=== PATIENT | male | born 1945 | race Caucasian/White ===

== ENCOUNTER 2018-10-07 13:19 | Emergency (ER) | payer MEDICARE, OTHER ==
[~2018-10-07] VITALS: Ht 175.3 cm; Wt 89.8 kg
[~2018-10-07 13:19] MED LIST: ADULT LOW DOSE81 MG PO; ATENOLOL50 MG PO; IBUPROFEN600 MG PO; LIPITOR40 MG PO; PAXIL20 MG PO; PERCOCET 5-3251 EACH PO
[2018-10-07] MEDS ORDERED: ULTRAM50 MG PO (13:42)
[2018-10-07] MEDS ORDERED: POTASSIUM CHLO10 ME2 PO (13:43)
[2018-10-07] MEDS ORDERED: CHLORTHALIDONE25 MG PO (13:43)
--- NOTE | 2018-10-08 16:59 | EKG ---
[facility] [address] [facility] [place], [place] [address] Signed Sinus bradycardia Otherwise normal ECG When compared with ECG of 29-OCT-2016 10:05, No significant change was found Confirmed by LENA LIMA DO ([id number]) on 10/08/2018 4:59:19 PM Electronically Signed By: LENA LIMA DO 10/08/18 1659 PATIENT NAME: JUAN PABLO SKY Electrocardiogram DATE OF : 47 PHYSICIAN: LENA LIMA DO REPORT #: [id number] REPORT IS CONFIDENTIAL AND NOT TO BE RELEASED WITHOUT AUTHORIZATION
== END 2018-10-07 17:15 | disposition home or self-care (01) ==
LOC: ED 13:19
DX: G45.9 Transient cerebral ischemic attack, unspecified (principal); I10 Essential (primary) hypertension; E78.00 Pure hypercholesterolemia, unspecified; Z90.89 Acquired absence of other organs; Z88.5 Allergy status to narcotic agent; Z79.899 Other long term (current) drug therapy; Z79.82 Long term (current) use of aspirin
CPT/HCPCS: 70450; 70496; 70498; 70551; 80053; 85025; 85610; 93005; 93010; 99284-25; Q9967

== ENCOUNTER 2020-11-28 10:26 | Emergency (ER) | payer MEDICARE, OTHER ==
[~2020-11-28] VITALS: Ht 175.3 cm; Wt 89.4 kg
[~2020-11-28 10:26] MED LIST changes: +CHLORTHALIDONE25 MG PO; +POTASSIUM CHLO10 ME2 PO; +ULTRAM50 MG PO
== END 2020-11-28 12:15 | disposition home or self-care (01) ==
LOC: ED 10:26
DX: M79.652 Pain in left thigh (principal); I10 Essential (primary) hypertension; E78.00 Pure hypercholesterolemia, unspecified; Z88.5 Allergy status to narcotic agent; Z79.899 Other long term (current) drug therapy
CPT/HCPCS: 80048; 83735; 85025; 85379; 99283

== ENCOUNTER 2021-07-30 06:04 | Day surgery (SDC) | payer MEDICARE, OTHER ==
[~2021-07-30] VITALS: Ht 175.3 cm; Wt 95.0 kg
[~2021-07-30 06:04] MED LIST changes: +CLOPIDOGREL75 MG PO
--- NOTE | 2021-07-30 08:48 | NUR ---
07/30/21 0848 Gabriela Miranda 3043-PATIENT ARRIVED TO PACU ON 6L MASK RR EVEN PATIENT REACTIVE TO VERBAL STIMULI OPENING EYES AND FOLLOWING COMMANDS. DENIES PAIN OR NAUSEA. 3 LAP SITES TO ABDOMEN SMALL AMT OF DRAINAGE. SR. IVF INFUSING. PATIENT DOZES BACK TO SLEEP.
[2021-07-30] MEDS ORDERED: IBUPROFEN600 MG PO (09:07)
[2021-07-30] MEDS ORDERED: ACETAMINOPHEN500 MG PO (09:08)
[2021-07-30] MEDS ORDERED: OXYCODON-ACETA1 EAC2 PO (09:08)
--- NOTE | 2021-07-30 10:42 | NUR ---
0935 PT BACK TO ROOM FROM PACU AWAKE AND ALERT COMPLAINS OF PAIN 4-5/10 REQUESTING PAIN MED. SURGICAL SITE BLEEDING THROUGH STERI STRIPS USED GAUZE AND TAPE TO REINFORCE. AT BEDSIDE. PT EATING APPLE SAUCE AND CRACKERS TOLERATES WELL. 1000 PERCOCET GIVEN FOR PAIN. 1030 PT REPORTS PAIN IS MUCH BETTER 3/10, BACK IN ROOM. PT DRINKING COFFEE. TOLERATES WELL.
--- NOTE | 2021-07-30 11:15 | NUR ---
0935: PT ARRIVES TO UNIT FROM PACU VIA STRETCHER. AWAKE AND ALERT ON ARRIVAL. VSS, RESP EVEN AND UNLABORED ON 2L VIA NC. O2 SAT >98% AND STABLE. DENIES NAUSEA BUT REPORTS MILD PAIN. DISCUSSED PAIN MANAGEMENT, TO EAT PRIOR TO RX ADMINISTRATION. LAP SITES X3 WITH MOD RED DRAINAGE. ICE WATER AND PUDDING PROVIDED. SCDS IN PLACE. POC DISCUSSED AND PT AGREEABLE. NO NEEDS VOICED. ATTENTIVE AT THE BEDSIDE. CALL LIGHT WITHIN REACH
--- NOTE | 2021-07-30 13:17 | NUR ---
1215 PT WALKED TO THE BATHROOM WITH MINIMAL ASSIST HE WAS ABLE TO VOID A GOOD AMOUNT OF CLEAR YELLOW URINE. HE REPORTS READINESS TO GO HOME. PT STATES PAIN IS MUCH BETTER 2-3/10. GAUZE AND TAPE CHANGED OVER INCISION ON UMBILICUS. GAUZE AND TAPE REMAINED DRY OVER INCISION ON RT SIDE OF ABD. PT GIVEN AND GIVEN DISCHARGE INSTRUCTIONS. BOTH VOICED UNDERSTANDING.
--- NOTE | 2021-07-30 13:34 | NUR ---
1228: PT WHEELED OFF OF UNIT BY THIS RN IN FOR DC. TRANSFERS INTO VEHICLE INDEPENDENTLY AND APPROPRIATELY. NO PHYSICAL S/S OF DISTRESS AT THIS TIME
--- NOTE | 2021-07-30 13:44 | NUR ---
PT ALERT, ORIENTED AND SUPPORTED BY HIS MAXIMILIAN. PT SEEMS INFORMED, ALL QUESTIONS ASKED ANSWERED. PT REQUESTED PRAYER, WILL FOLLOW NEEDED
--- NOTE | 2021-07-31 13:37 | OR ---
[facility] [address] [place], [place] [address] Signed DATE OF OPERATION: 07/30/2021 SURGEON: Shade Lyons MD PREOPERATIVE DIAGNOSIS: Tail of pancreas neoplasm and possible omental nodules. POSTOPERATIVE DIAGNOSES: 1. Tail of pancreas neoplasm and possible omental nodules. 2. Diffuse carcinomatosis and omental caking. PROCEDURES: 1. Laparoscopy. 2. Laparoscopic partial omentectomy. 3. Peritoneal biopsies (multiple). ANESTHESIA: General endotracheal, Renaldo Silva, MANAGER CHEMICAL and local 10 mL of 0.25% Marcaine with epinephrine. INDICATION: This 75-year-old white man is a patient of Dr. Lizbet Pierre. He lives in [place]. Formally, he lived in [place]. The patient has had complaints of upper bandlike pain bilaterally and a CT scan was performed by Dr. Pierre, which confirmed a neoplasm in the tail of the pancreas involving the hilum of the spleen and possible splenic lesions as well. Additionally, there were suspicious lymph nodes of the aortocaval junction and nodularity within the omentum. A CA19-9 tumor marker was obtained, which was quite markedly elevated greater than 2705 (normal less than 70). Concurrent CEA level was normal. The patient is admitted at this time to undergo a laparoscopy to better characterize the problem including possible omentectomy, peritoneal biopsies, and other indicated procedures as necessary. The patient and his understand the risks of bleeding, infection, anesthetic complications, and so forth and wished to proceed. FINDINGS: Diffuse carcinomatosis of the peritoneum was noted. Additionally, extensive involvement of the omentum was noted. No doubt this represents metastatic pancreatic cancer and is considered incurable. He had no sign of dilated small bowel loops or anything to suggest imminent obstruction. The pancreatic neoplasm and hilum of the spleen were not Electronically Signed By: SHADE LYONS MD 07/31/21 1337 PATIENT NAME: JUAN PALBO SKY OPERATIVE REPORT DATE OF : 47 REPORT #: [id number] PHYSICIAN: SHADE LYONS MD PCP: LIZBET PIERRE MD REPORT IS CONFIDENTIAL AND NOT TO BE RELEASED WITHOUT AUTHORIZATION [facility] [address] [place], [place] [address] Signed visualized. The liver had no gross evidence of metastatic disease. DESCRIPTION OF PROCEDURE: The patient was brought to the operating room, given a general endotracheal anesthetic. Preoperative antibiotic Ancef was given. Sequential compression device stockings were used and heparin subcutaneously administered. The abdomen was clipped and prepared with a chlorhexidine solution and draped sterilely. An infraumbilical incision was made and using an open Iker cannula technique, pneumoperitoneum was achieved to a level of 14 mmHg of carbon dioxide gas. Immediately noted were innumerable pearly nodules over the peritoneal area superiorly and elsewhere with special confluence in the right hemidiaphragm. A 12 mm epigastric port was placed as was a right lower quadrant 5 mm port. Two-hand manipulation revealed the omentum to be involved with neoplastic change as well. Omental caking was noted. There was a small amount of ascites lateral to the liver, not too much. There was no sign of dilated bowel loops to suggest obstruction or need for palliative decompression at this time. A segment of omentum was elevated and found to have rather typical omental caking. With an Endo LAURO stapling device, three loads were used to transect a generous piece of omentum (partial omentectomy), which was then placed in an endobag and extracted through the infraumbilical port site, passed for permanent pathology. Using an Endo cup biopsy device, multiple peritoneal biopsies were obtained as well. Good hemostasis was noted. Irrigation was undertaken. Excess irrigation fluid suctioned free. The trocars removed under direct visualization showing no sign of bleeding. The infraumbilical fascial incision was reapproximated with interrupted 0 Vicryl suture as was the epigastric port site. The skin was closed with interrupted 3-0 Vicryl. 10 mL of 0.25% Marcaine with epinephrine injected locally. The patient was ultimately extubated and transferred to recovery room in good condition having suffered no complications. Blood loss wasminimal. Sponge, needle, and instrument counts were reported as correct x3. Shade Lyons MD /MODL /[id number] Electronically Signed By: SHADE LYONS MD 07/31/21 1337 PATIENT NAME: JUAN PABLO SKY OPERATIVE REPORT DATE OF : 47 REPORT #: [id number] PHYSICIAN: SHADE LYONS MD PCP: LIZBET PIERRE MD REPORT IS CONFIDENTIAL AND NOT TO BE RELEASED WITHOUT AUTHORIZATION [address] [address] Signed cc: Lizbet Pierre MD Copies: LIZBET PIERRE MD ~ Electronically Signed By: SHADE LYONS MD 07/31/21 1337 PATIENT NAME: JUAN PABLO SKY OPERATIVE REPORT DATE OF : 47 REPORT #: [id number] PHYSICIAN: SHADE LYONS MD PCP: LIZBET PIERRE MD REPORT IS CONFIDENTIAL AND NOT TO BE RELEASED WITHOUT AUTHORIZATION
--- NOTE | 2021-08-02 17:42 | PATH ---
[facility] [address] [facility] [place] [address] Signed SPECIMEN(S): A PORTION OF OMENTUM SPECIMEN(S): B PERITONEAL BIOPSIES SPECIMEN SOURCE: A. PORTION OF OMENTUM B. PERITONEAL BIOPSIES CLINICAL HISTORY: Band-like bilateral upper subcostal pain. Laparoscopy with omental excision, peritoneal biopsies. FINAL PATHOLOGIC DIAGNOSIS: A. Portion of omentum: - Portion of omental adipose tissue infiltrated by moderately differentiated adenocarcinoma. Results of immunohistochemical stains reveal the following: - POSITIVE: CK7, CA19-9. - NEGATIVE: CDx2, RCC, Villin, CK20, TTF1, Napsin A, GATA3. - EQUIVOCAL: CD10. B. Peritoneum, biopsies: - Fibroconnective and adipose tissue infiltrated by tumor demonstrating similar morphologic features as seen in specimen A. - See specimen A for immunohistochemical workup. COMMENT: The findings indicate a carcinoma of probable upper gastrointestinal origin, to include gallbladder, stomach or pancreas. Please correlate these findings with the clinical presentation. Control slides stain appropriately positive. TWK:NRT:cml:C1NR MICROSCOPIC EXAMINATION: Histologic sections of all submitted blocks are examined by light microscopy. These findings, together with the gross examination, support the pathologic diagnosis. GROSS DESCRIPTION: Two specimens are received in two containers, labeled "GG." A. The specimen, labeled "GG, A," and designated on the requisition "portion of omentum," is received in formalin and consists of portion of yellow-levin, fatty to firm omentum (8.8 x 4.0 x 1.7 cm) PATIENT NAME: JUAN PABLO SKY PATHOLOGY DATE OF : 47 REPORT #: [id number] PHYSICIAN: GREER GALEANA PCP: LIZBET PIERRE MD REPORT IS CONFIDENTIAL AND NOT TO BE RELEASED WITHOUT AUTHORIZATION [facility] [address] [place], [place] [address] Signed with stapled margin. The specimen is inked blue, the staple line is removed and the margin is inked black. The specimen is serially sectioned to reveal yellow-levin, soft to white-levin, indurated cut surfaces, with white-levin indurated areas present at the staple line. A discrete mass is not identified. French Comber sections are submitted in cassettes (A1-A3). B. The specimen, labeled "GG, B," and designated on the requisition "peritoneal biopsies," is received in formalin and consists of multiple fragments of white to yellow-levin soft tissue (1.5 x 1.0 x 0.3 cm in aggregate). The specimen is submitted entirely in cassette (B1). AC (under the direct supervision of a pathologist) The Gross Description was prepared using a voice recognition system. The report was reviewed for accuracy; however, sound-alike word errors, addition and/or deletions may occur. If there is any question about this report, please contact Client Services. ADDITIONAL NOTES: Immunohistochemical and/or in situ hybridization studies were performed on this case with the appropriate positive controls that react as expected. This test was developed and its performance characteristics determined by [employer]. It has not been cleared or approved by the U.S. Food and Drug Administration. The FDA has determined that such clearance or approval is not necessary. This test is used for clinical purposes. It should not be regarded as investigational or for research. [employer] is certified under the Clinical Laboratory Improvement Amendments of 1988 (CLIA) as qualified to perform high complexity clinical laboratory testing. This assay has not been validated for specimens that have been decalcified. The technical component was performed by [employer], [address] [place] [address] (Winding Inspector And Tester: Laverne Pereira MD; CLIA# [id number]). The technical component was performed by [employer], [address] [place], [place] [address], [place] [address] (Winding Inspector And Tester: Eddie Jones D.O.; CLIA#: [id number]). [facility], [address] [facility] [place] [address] (CLIA# [id number]). The technical component was performed by [employer], [address] [place] [address] (Winding Inspector And Tester: Laverne Pereira MD; CLIA# [id number]). [facility], [address] [facility]. 107, PATIENT NAME: JUAN PABLO SKY PATHOLOGY DATE OF : 47 REPORT #: [id number] PHYSICIAN: GREER PATHOLOGY PCP: LIZBET PIERRE MD REPORT IS CONFIDENTIAL AND NOT TO BE RELEASED WITHOUT AUTHORIZATION [facility] [address] [place], [place] [address] Signed [place] [address] (CLIA# [id number]). Diagnostician: Chris Villalobos MD Pathologist Electronically Signed 08/02/2021 Copies: ~ PATIENT NAME: JUAN PABLO SKY PATHOLOGY DATE OF : 47 REPORT #: [id number] PHYSICIAN: GREER PATHOLOGY PCP: LIZBET PIERRE MD REPORT IS CONFIDENTIAL AND NOT TO BE RELEASED WITHOUT AUTHORIZATION
== END 2021-07-30 12:31 | disposition home or self-care (01) ==
LOC: DS 06:04
PROVIDERS: ATTEND Surgery
PROC: 0WBH4ZX Excision of Retroperitoneum, Percutaneous Endoscopic Approach, Diagnostic (ICD-10-PCS; 2021-07-30)
PROC: 0DBU4ZZ Excision of Omentum, Percutaneous Endoscopic Approach (ICD-10-PCS; principal; 2021-07-30 06:45)
DX: C25.2 Malignant neoplasm of tail of pancreas (principal); C78.6 Secondary malignant neoplasm of retroperitoneum and peritoneum; C80.0 Disseminated malignant neoplasm, unspecified; I10 Essential (primary) hypertension
CPT/HCPCS: 00790; J0131; J0690; J1100; J1644; J2001; J2405; J2704; J3010; J7121

== ENCOUNTER 2021-11-12 11:06 | Day surgery (SDC) | payer MEDICARE, OTHER ==
[~2021-11-12] VITALS: Ht 175.3 cm; Wt 86.5 kg
[~2021-11-12 11:06] MED LIST changes: +ACETAMINOPHEN500 MG PO; +LIPITOR10 MG; +LOMOTIL TABLET1 EACH PO; +LOVENOX80 MG/0.8 SUB-Q; +ONDANSETRON ODT8 MG PO; +OXYCODON-ACETA1 EAC2 PO; +TRAMADOL HCL50 MG PO
[2021-11-12] MEDS ORDERED: XARELTO20 MG PO (12:08)
[2021-11-12] MEDS ORDERED: FENTANYL1 EACH TD (12:15)
--- NOTE | 2021-11-12 13:57 | NUR ---
11/12/21 1357 Margot Chamorro 1340- PT TO PACU IN SF POSITION. EYES OPEN. DROWSY. PT RESPONDS TO COMMANDS. BREATHING EASY AND UNLABORED. SPO2 >95% ON 6 L O2 VIA SIMPLE MASK. 1346- PT REMAINS AWAKE DENIES PAIN AND NAUSEA. BREATHING EASY AND UNLABORED. SPO2 >95%. O2 TITRATED DOWN TO ROOM AIR. 1352- PT REQUESTING ICE CHIPS. HOB ELEVATED. PT DENIES DIZZINESS OR NAUSEA. SP02 88-90% WHILE SLEEPING. 2 L O2 VIA NC APPLIED.
[2021-11-12] MEDS ORDERED: ACETAMINOPHEN500 MG PO (13:58)
--- NOTE | 2021-11-12 15:18 | NUR ---
1505: PATIENT BACK IN DAY SURGERY ROOM FROM PACU FOR DECREASED O2 SATS. PATIENT ON ROOM AIR. ENCOURAGED TO TAKE DEEP BREATHS. FAMILY ENCOURAGED TO REMIND PATIENT. VS CHECKED. DENIES PAIN. LEFT CHEST DRESSING CDI. SCDs ON. CALL LIGHT WITHIN REACH. FAMILY AT BEDSIDE.
--- NOTE | 2021-11-12 15:59 | NUR ---
1530: O2 SATS DROPPING TO MID 80s. PATIENT PLACED ON 1 L O2 VIA NC. FAMILY AT BEDSIDE. CALL LIGHT WITHIN REACH.
--- NOTE | 2021-11-12 16:17 | NUR ---
1550: VS CHECKED. O2 TURNED OFF. PATIENT BACK ON ROOM AIR. LEFT CHEST DRESSING CDI. FAMILY AT BEDSIDE. CALL LIGHT WITHIN REACH. 1605: O2 SATs IN LOW 90s. PATIENT ASSISTED TO GET OOB AND DRESSED BY . O2 SAT AFTER DRESSING IN MID 90s. 1610: IV DC'D WNL. TIP INTACT. DRESSING APPLIED. PATIENT DISCHARGED TO HOME WITH VIA WHEELCHAIR. DISCHARGE INSTRUCTIONS GIVEN TO PREVIOUSLY BY COVER MACHINE OPERATOR.
--- NOTE | 2021-11-12 19:02 | OR ---
[facility] [address] [place], [place] [address] Signed DATE OF OPERATION: 11/12/2021 SURGEON: Shade Lyons MD PREOPERATIVE DIAGNOSES: 1. Stage IV pancreatic carcinoma with ongoing palliative care. 2. Flipped and mobile left subclavian Port-A-Cath device (Bard port catheter). POSTOPERATIVE DIAGNOSES: 1. Stage IV pancreatic carcinoma with ongoing palliative care. 2. Flipped and mobile left subclavian Port-A-Cath device (Bard port catheter). PROCEDURE: Left subclavian Port-A-Cath revision. ANESTHESIA: Local with monitored anesthesia care, Renaldo Silva CRNA INDICATIONS: This 76-year-old white man is a patient of Dr. Lizbet Pierre and found to have stage IV pancreatic cancer based on CT scan findings and laparoscopic biopsies. He has generalized carcinomatosis. The patient underwent placement of a left subclavian Bard port catheter (Port-A-Cath device) on September 03, 2021. He promptly thereafter embarked on chemotherapy and has had a fair amount of weight loss and so on. He is tolerating the palliative regimen well overall. He was recently found to have clinical appearance of a "flipped" Port-A-Cath device. Protocol for [facility] where he was undergoing chemotherapy forbids the manipulation by Oncology staff to allow for infusion of the port and on that basis he returns here for revision of the Port-A-Cath. The patient understands as does his the risk of bleeding, infection, and so forth and wished to proceed. Notably, the patient did have a postoperative DVT/pulmonary embolism and has been on Xarelto since that time. He was planning to be off his Xarelto, but in fact accidentally had taken it yesterday, though not today. We will proceed any way as a local anesthetic and sedation is all that will be necessary for revision of this Port-A-Cath. His and he understand the risk of bleeding, infection, need for replacement of the port altogether and of course the recurrent problems and has agreed to proceed. Electronically Signed By: SHADE LYONS MD 11/12/21 1902 PATIENT NAME: JUAN PABLO SKY OPERATIVE REPORT DATE OF : 47 REPORT #: [id number] PHYSICIAN: SHADE LYONS MD PCP: LIZBET PIERRE MD REPORT IS CONFIDENTIAL AND NOT TO BE RELEASED WITHOUT AUTHORIZATION [facility] [address] [place], [place] [address] Signed FINDINGS: In the day surgery area, I was easily able to flip the port to the upright position. Nevertheless, we proceeded to the operating room where a well-formed capsule was noted. The port itself appeared to be nonproblematic. It was easily sutured in place with 0 Prolene to the base of the well-formed capsule and it is unlikely to having further problems. It was tested with a Barajas needle showing easy withdrawal of blood and easy flushing with heparinized saline. DESCRIPTION OF PROCEDURE: The patient was brought to the operating room, given intravenous sedation. His arms were at the side. The upper torso was prepared with a chlorhexidine solution and draped sterilely. He received preoperative antibiotic Ancef. Sequential compression device stockings were then placed as well. A 0.25% Marcaine with epinephrine injected along the previous incision line in the left infraclavicular space. Using a 15 blade, dissection was carried through the subcutaneous tissue until encountering the port device itself. Electrocautery was used to incise the capsule. The port was normal in appearance and at this point in appropriate position as I was able to flip it into a normal position in the day surgery area. The capsule was well formed. There was no sign of infection. The port was secured to the deep capsular rind circumferentially around the port with interrupted 2-0 Prolene suture. The port was very well fixed at this point. Using a Barajas needle, aspiration of blood was easily noted and flushing with heparinized saline without problem noted as well. The port capsule was reapproximated with interrupted 2-0 Vicryl. The skin was closed with running subcuticular 3-0 Vicryl. Steri-Strips were applied as was an Acticoat dressing. The patient tolerated the procedure well. BLOOD LOSS: Minimal. Shade Lyons MD /MODL /[id number] cc: Lizbet Pierre MD Electronically Signed By: SHADE LYONS MD 11/12/211901 PATIENT NAME: JUAN PABLO SKY OPERATIVE REPORT DATE OF : 47 REPORT #: [id number] PHYSICIAN: SHADE LYONS MD PCP: LIZBET PIERRE MD REPORT IS CONFIDENTIAL AND NOT TO BE RELEASED WITHOUT AUTHORIZATION [address] [address] Signed Copies: LIZBET PIERRE MD ~ Electronically Signed By: SHADE LYONS MD 11/12/21 1902 PATIENT NAME: JUAN PABLO SKY OPERATIVE REPORT DATE OF : 47 REPORT #: [id number] PHYSICIAN: SHADE LYONS MD PCP: LIZBET PIERRE MD REPORT IS CONFIDENTIAL AND NOT TO BE RELEASED WITHOUT AUTHORIZATION
== END 2021-11-12 16:10 | disposition home or self-care (01) ==
LOC: DS 11:06
PROVIDERS: ATTEND Surgery
PROC: 02WY33Z Revision of Infusion Device in Great Vessel, Percutaneous Approach (ICD-10-PCS; principal; 2021-11-12 12:00)
DX: T82.524A Displacement of infusion catheter, initial encounter (principal); C25.9 Malignant neoplasm of pancreas, unspecified; I10 Essential (primary) hypertension; Z90.49 Acquired absence of other specified parts of digestive tract; Z88.5 Allergy status to narcotic agent; Z20.822 Contact with and (suspected) exposure to COVID-19
CPT/HCPCS: C9803; J0690; J1644; J2001; J2405; J2704; J3010; J7121; U0003

== ENCOUNTER 2022-08-03 02:05 | Emergency (ER) | payer MEDICARE, OTHER ==
[~2022-08-03] VITALS: Ht 175.3 cm; Wt 65.3 kg
[~2022-08-03 02:05] MED LIST changes: +CEFDINIR300 MG PO; +CONSTULOSE10 GM/15 M PO; +FENTANYL1 EACH TD; +LORAZEPAM1 MG PO; +MUPIROCIN22 GM TOP; +PAROXETINE ER25 MG PO; +PROCHLORPERAZIN10 MG PO; +XARELTO20 MG PO
--- OUTSIDE RECORDS SUMMARY | 2022-08-03 02:06 | XMS ---
PreManage Notification: JUAN PABLO SKY Security Medical Office Specialist Events No recent Security Events currently on file CRITERIA MET - [facility] CARE PROVIDERS There are no care providers on record at this time. [facility] has no Care Guidelines for this patient. Evgeny VISIT COUNT (12 MO.) 10 Panther [place] Ameena 2 PAZ Henson TOTAL 12 NOTE: Visits indicate total known visits. ED/C VISIT TRACKING (12 MO.) 08/03/2022 02:05 [facility] [place] TYPE: Emergency COMPLAINT: - FALL 06/12/2022 17:04 [facility] [place] TYPE: Emergency COMPLAINT: - WEAKNESS [facility] DIAGNOSES: - Fever presenting with conditions classified elsewhere - chemo patient disoriented - Acute embolism and thrombosis of unspecified deep veins of left distal lower extremity - Malignant neoplasm of pancreas, unspecified - Altered Mental Status - Pneumonia, unspecified organism - Neutropenia, unspecified - Metabolic encephalopathy 02/17[facility]2022 [facility] DIAGNOSES: - Abdominal Pain - Left upper quadrant pain - abd pain 01/28/2022 21[facility] DIAGNOSES: - Pneumonitis due to inhalation of food and vomit - Fever (9 Weeks To 74 Years) - Sepsis, unspecified organism - post chemo high temp - Pneumonia, unspecified organism 01/04/2022 13[facility] DIAGNOSES: - Other chest pain - Chest Pain 12/05/2021 09[facility] DIAGNOSES: - Epistaxis - Epistaxis - Thrombocytopenia, unspecified - persisting nose bleed, chemo patient, Oncologist is DR Hansen - Anemia, unspecified - Malignant (primary) neoplasm, unspecified 11/30/2021 12[facility] DIAGNOSES: - Altered Mental Status - Altered mental status, unspecified [facility]/08[facility] [place] [facility]: Emergency DIAGNOSES: - SOB - Shortness of breath - Other specified postprocedural states 10/27/2021 11:[facility] [place] [facility] Emergency DIAGNOSES: - sob, low o2 - Chronic pulmonary embolism - Secondary malignant neoplasm of retroperitoneum and peritoneum - Shortness of Breath - Pleural effusion, not elsewhere classified - Anemia in other chronic diseases classified elsewhere 10/08/2021 [facility] [place] TYPE: Emergency DIAGNOSES: - cancer patient altered mental status - Hallucinations, unspecified - Altered Mental Status 08/10/2021 11[facility]30 [facility] [place] [facility]: Emergency DIAGNOSES: - SOB - Other pulmonary embolism with acute cor pulmonale - Acute embolism and thrombosis of unspecified deep veins of left distal lower extremity - Neoplasm of uncertain behavior of other specified digestive organs - Shortness of Breath INPATIENT VISIT TRACKING (12 MO.) 06/12/2022 17:05 [facility] TYPE: Observation COMPLAINT: - LACTIC ACIDOSIS, ALTERED MENTAL STATUS DIAGNOSES: - Acidosis, unspecified - adjunct faculty for medical terminology (current) use of anticoagulants - Other pancytopenia - Nausea with vomiting, unspecified - Sepsis, unspecified organism - Malignant neoplasm of pancreas, unspecified - ACIDOSIS, UNSPECIFIED - Hyperglycemia, unspecified - Personal history of other venous thrombosis and embolism - Essential (primary) hypertension - Allergy status to narcotic agent - Contact with and (suspected) exposure to COVID-19 - Altered mental status, unspecified 04/26[facility]2022 [facility] DIAGNOSES: - Acute embolism and thrombosis of unspecified deep veins of left distal lower extremity - Fever presenting with conditions classified elsewhere - Neutropenia, unspecified - Malignant neoplasm of pancreas, unspecified - Metabolic encephalopathy - Pneumonia, unspecified organism 01/28/2022 21[facility]12 [facility] [place] [facility]: Medical [facility] DIAGNOSES: - Unspecified severe protein-calorie malnutrition - Sepsis, unspecified organism - Pneumonia, unspecified organism - Malignant neoplasm of pancreas, unspecified - Pneumonitis due to inhalation of food and vomit 08/10/2021 11:30 [facility] TYPE: Surgical Services DIAGNOSES: - Essential (primary) hypertension - Other pulmonary embolism with acute cor pulmonale - Acute embolism and thrombosis of unspecified deep veins of left distal lower extremity - Other pulmonary embolism without acute cor pulmonale - Transient cerebral ischemic attack, unspecified - Multiple subsegmental pulmonary emboli without acute cor pulmonale - Neoplasm of uncertain behavior of other specified digestive organs - Malignant neoplasm of pancreas, unspecified - Hyperlipidemia, unspecified - Mixed hyperlipidemia - Personal history of transient ischemic attack (TIA), and cerebral infarction without residual deficits [email or web address]
[2022-08-03] MEDS ORDERED: POTASSIUM CHLO20 ME2 PO (02:18)
[2022-08-03] MEDS ORDERED: PANTOPRAZOLE SO40 MG PO (02:18)
[2022-08-03] MEDS ORDERED: PERCOCET 5-3251 EACH PO (03:05)
== END 2022-08-03 03:24 | disposition home or self-care (01) ==
LOC: ED 02:05
DX: S29.012A Strain of muscle and tendon of back wall of thorax, initial encounter (principal); T14.8XXA Other injury of unspecified body region, initial encounter; I10 Essential (primary) hypertension; E78.00 Pure hypercholesterolemia, unspecified; Z86.718 Personal history of other venous thrombosis and embolism; Z88.5 Allergy status to narcotic agent; Z79.899 Other long term (current) drug therapy; Z79.01 Long term (current) use of anticoagulants; W01.0XXA Fall on same level from slipping, tripping and stumbling without subsequent striking against object, initial encounter
CPT/HCPCS: 72070; 72080; 99283-25

== ENCOUNTER 2022-08-05 00:03 | Emergency (ER) | payer MEDICARE, OTHER ==
[~2022-08-05] VITALS: Ht 175.3 cm; Wt 65.3 kg
[~2022-08-05 00:03] MED LIST changes: +PANTOPRAZOLE SO40 MG PO; +POTASSIUM CHLO20 ME2 PO
--- OUTSIDE RECORDS SUMMARY | 2022-08-05 00:06 | XMS ---
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 [facility] has no Care Guidelines for this patient. Evgeny VISIT COUNT (12 MO.) [address] [facility] T[facility] NOTE: Visits indicate total known visits. ED/C VISIT TRACKING (12 MO.) 08/05/2022 00:04 [facility] [place] TYPE: Emergency COMPLAINT: - VOMITING BLOOD AND FELL IN SHOWER 08/03/2022 02:05 [facility] [place] TYPE: Emergency COMPLAINT: - FALL 06/12/2022 17:04 [facility] [place] TYPE: Emergency COMPLAINT: - WEAKNESS 04/26[facility]2022 09:29 [facility] DIAGNOSES: - Fever presenting with conditions classified elsewhere - chemo patient disoriented - Acute embolism and thrombosis of unspecified deep veins of left distal lower extremity - Malignant neoplasm of pancreas, unspecified - Altered Mental Status - Pneumonia, unspecified organism - Neutropenia, unspecified - Metabolic encephalopathy [facility] DIAGNOSES: - Abdominal Pain - Left upper quadrant pain - abd pain 01/28/2022 21:12 [facility] Serafin [place] TYPE: Emergency DIAGNOSES: - Pneumonitis due to inhalation of food and vomit - Fever (9 Weeks To 74 Years) - Sepsis, unspecified organism - post chemo high temp - Pneumonia, unspecified organism 01/04/2022 13:48 [facility] DIAGNOSES: - Other chest pain - Chest Pain 12/05/2021 09:07 [facility] Serafin [facility] TYPE: Emergency DIAGNOSES: - Epistaxis - Epistaxis - Thrombocytopenia, unspecified - persisting nose bleed, chemo patient, Oncologist is DR Hansen - Anemia, unspecified - Malignant (primary) neoplasm, unspecified 11/30/2021 12:21 [facility] [place] TYPE: Emergency DIAGNOSES: - Altered Mental Status - Altered mental status, unspecified 11/08/2021 16:22 [facility] [place] TYPE: Emergency DIAGNOSES: - SOB - Shortness of breath - Other specified postprocedural states 10/27/2021 11:25 [facility] Serafin [facility] TYPE: Emergency DIAGNOSES: - sob, low o2 - Chronic pulmonary embolism - Secondary malignant neoplasm of retroperitoneum and peritoneum - Shortness of Breath - Pleural effusion, not elsewhere classified - Anemia in other chronic diseases classified elsewhere 10/08/2021 21:24 [facility] [place] TYPE: Emergency DIAGNOSES: - cancer patient altered mental status - Hallucinations, unspecified - Altered Mental Status 08/10/2021 11:30 [facility] [place] [place] DIAGNOSES: - SOB - Other pulmonary embolism with acute cor pulmonale - Acute embolism and thrombosis of unspecified deep veins of left distal lower extremity - Neoplasm of uncertain behavior of other specified digestive organs - Shortness of Breath INPATIENT VISIT TRACKING (12 MO.) 06/12/2022 17:05 [facility] [place] TYPE: Observation COMPLAINT: - LACTIC ACIDOSIS, ALTERED MENTAL STATUS DIAGNOSES: - rodent exterminator (current) use of anticoagulants - Other pancytopenia - Nausea with vomiting, unspecified - Sepsis, unspecified organism - Malignant neoplasm of pancreas, unspecified - ACIDOSIS, UNSPECIFIED - Hyperglycemia, unspecified - Personal history of other venous thrombosis and embolism - Essential (primary) hypertension - Allergy status to narcotic agent - Contact with and (suspected) exposure to COVID-19 - Altered mental status, unspecified - Acidosis, unspecified 04/26/2022 09:29 [facility] [place] [facility] DIAGNOSES: - Acute embolism and thrombosis of unspecified deep veins of left distal lower extremity - Fever presenting with conditions classified elsewhere - Neutropenia, unspecified - Malignant neoplasm of pancreas, unspecified - Metabolic encephalopathy - Pneumonia, unspecified organism 01/28/2022 21:12 [facility] DIAGNOSES: - Unspecified severe protein-calorie malnutrition - Sepsis, unspecified organism - Pneumonia, unspecified organism - Malignant neoplasm of pancreas, unspecified - Pneumonitis due to inhalation of food and vomit 08/10/2021 11:30 [facility] DIAGNOSES: - Essential [...] (TIA), and cerebral infarction without residual deficits [email or web address]
[2022-08-05] MEDS ORDERED: PROCHLORPERAZIN10 MG PO (02:53)
== END 2022-08-05 08:11 | disposition home or self-care (01) ==
LOC: ED 00:03
DX: C25.9 Malignant neoplasm of pancreas, unspecified (principal); D64.9 Anemia, unspecified; I10 Essential (primary) hypertension; E78.00 Pure hypercholesterolemia, unspecified; Z86.718 Personal history of other venous thrombosis and embolism; Z88.5 Allergy status to narcotic agent; Z79.899 Other long term (current) drug therapy; Z79.01 Long term (current) use of anticoagulants
CPT/HCPCS: 36415; 72220; 80053; 85025; 85060; 85610; 85730; 86850; 86900; 86901; 99284-25